=== PATIENT | female | born 1995 | race Caucasian/White ===

== ENCOUNTER 2024-10-08 22:36 | Emergency (ER) | payer OTHER, SELFPAY ==
[2024-10-08 22:42] VITALS: BP 107/73; PULSE 85; RESP 17; TEMP 36.6; O2SAT 98; BMI 30.9
== END 2024-10-09 00:56 | disposition left against medical advice (07) ==
PROVIDERS: Emergency Provider Emergency Medicine Emergency Medical Services
DX: Z53.21 Procedure and treatment not carried out due to patient leaving prior to being seen by health care provider (principal); M54.50 Low back pain, unspecified
CPT/HCPCS: 99281